=== PATIENT | female | born 1965 | race American Indian/Alaskan Native ===

== ENCOUNTER 2018-09-30 16:04 | Observation (INO) | payer SELFPAY ==
[2018-09-30] MEDS ORDERED: ASPIRIN PO ONE (16:44)
--- NOTE | 2018-09-30 16:46 | Emergency Department Report ---
Chief Complaint: Chest Pain Stated Complaint: CHEST/BODY PAIN Time Seen by Provider: 09/30/18 16:41 - HPI History of Present Illness: This is a 53 y.o. female that presents to ER with chest pain x 3 weeks. Currently taking NSAIDs with no improvement of symptoms. Patient arrived from [facility] 09/01/18 to visit relatives. - Exam Vital Signs: Vital Signs 09/30/18 16:41 Temperature 98.3 F Pulse Rate 86 Respiratory 16 Rate Blood Pressure 131/88 O2 Sat by Pulse 98 Oximetry MSE screening note: Focused history and physical exam performed. Due to findings the following was ordered: Labs, ekg, and CXR ACC for further evaluation. ED Disposition for MSE Condition: Stable
[2018-09-30 17:03] LABS: Hematocrit 38.6 % (30.3-42.9); Hemoglobin 13.4 gm/dl (10.1-14.3); Mean Corpuscular HGB Conc 35 % (30-34); Mean Corpuscular Volume 94 fl (79-97); Platelet Count 207 K/mm3 (140-440); Red Blood Count 4.09 M/mm3 (3.65-5.03); Red Cell Distribution Width 13.2 % (13.2-15.2)
[2018-09-30 17:16] LABS: BUN/Creatinine Ratio 21; Blood Urea Nitrogen 17 mg/dL (7-17); Calcium 9.3 mg/dL (8.4-10.2); Hemolysis Index 41
--- NOTE | 2018-09-30 18:04 | XRay Report ---
PROCEDURE: XR CHEST ROUTINE 2V TECHNIQUE: PA and lateral views of the chest HISTORY: Chest Pain COMPARISONS: None FINDINGS: There is no evidence of infiltrate, pneumothorax or pleural fluid collection. The cardiomediastinal silhouette is normal in appearance. The bony structures are unremarkable. IMPRESSION: 1. No evidence of an acute pulmonary process. This document is electronically signed by Dedra Hammond MD., September 30 2018 06:02:05 PM ET
--- NOTE | 2018-09-30 18:33 | Emergency Department Report ---
ED Chest Pain HPI - General Chief Complaint: Chest Pain Stated Complaint: CHEST/BODY PAIN Time Seen by Provider: 09/30/18 16:41 Source: patient Mode of arrival: Ambulatory Limitations: No Limitations - History of Present Illness Initial Comments: 53-year-old Samoan female presents to the emergency department with a complaint of a 3 week history of midsternal nonradiating chest pain and joint pains. She denies any shortness of breath but does say that the pain worsens with breathing. She has no past medical history. She is not a smoker and denie s any illicit drug use. She has tried some indomethacin, ibuprofen and aspirin, but not together, for her symptoms without much relief. Her son says that she has been going through a lot of stress with this move from [facility]. Severity scale (0 -10): 0 - Related Data Allergies Allergy/AdvReac Type Severity Reaction Status Date / Time No Known Allergies Allergy Unverified 09/30/18 16:08 Heart Score - HEART Score History: Slightly suspicious EKG: Non-specific Age: 45-65 Risk factors: No known risk factors Troponin: < normal limit HEART Score: 2 - Critical Actions Critical Actions: 0-3 pts:0.9-1.7%risk of adverse cardiac event.Candidate for discharge ED Review of Systems ROS: Stated complaint: CHEST/BODY PAIN Other details as noted in HPI Comment: All other systems reviewed and negative Constitutional: denies: chills, fever Eyes: denies: eye pain, vision change ENT: denies: ear pain, throat pain Respiratory: denies: cough, shortness of breath Cardiovascular: chest pain. denies: palpitations Gastrointestinal: denies: abdominal pain, vomiting Genitourinary: denies: urgency, dysuria Musculoskeletal: arthralgia. denies: joint swelling Skin: denies: rash, lesions Neurological: denies: headache, weakness ED Past Medical Hx - Past Medical History Previous Medical History?: No - Surgical History Past Surgical History?: Yes Additional Surgical History: eye surgery - Social History Smoking Status: Never Smoker ED Physical Exam - General Limitations: No Limitations - Other Other exam information: GENERAL: The patient is well-developed well-nourished. HEENT: Normocephalic. Atraumatic. Patient has moist mucous membranes. EYES: Extraocular motions are intact. Pupils are equal and reactive to light bilaterally. NECK: Supple. Trachea is midline. CHEST/LUNGS: Clear to auscultation. There is no respiratory distress noted. Chest pain is not reproducible to palpation of the chest wall. HEART/CARDIOVASCULAR: Regular. There is no tachycardia. There is no obvious m urmur. ABDOMEN: Abdomen is soft, nontender. Patient has normal bowel sounds. There is no abdominal distention. SKIN: Skin is warm and dry. NEURO: The patient is awake, alert, and oriented. The patient is cooperative. The patient has no focal neurologic deficits. The patient has normal speech. MUSCULOSKELETAL: There is no tenderness or deformity. There is no evidence of acute injury. ED Course Vital Signs 09/30/18 09/30/18 09/30/18 16:41 18:05 18:06 Temperature 98.3 F 98.6 F Pulse Rate 86 77 Respiratory 16 23 23 Rate Blood Pressure 131/88 Blood Pressure 133/89 [Right] O2 Sat by Pulse 98 97 97 Oximetry ALLEN score - Allen Score Age > 65: (0) No Aspirin use within the Past 7 Days: (1) Yes 3 or more CAD Risk Factors: (0) No 2 or more Angina events in past 24 hrs: (1) Yes Known CAD with more than 50% Stenosis: (0) No Elevated Cardiac Markers: (0) No ST Deviation Greater than 0.5mm: (0) No ALLEN Score: 2 ED Medical Decision Making - Lab Data Result diagrams: 09/30/18 16:50 09/30/18 16:50 - EKG Data -: EKG Interpreted by Oh EKG shows normal: sinus rhythm, axis (left axis deviation), intervals, QRS complexes (LVH), ST-T waves Rate: normal - EKG Data When compared to previous EKG there are: previous EKG unavailable Interpretation: LVH - Radiology Data Radiology results: image reviewed interpreted by me: Chest x-ray does not show any pneumothorax, pleural effusion, pneumonia or obvious focal consolidation. - Medical Decision Making Patient presents to the emergency department with a history of intermittent midsternal chest pain that worsens with respirations, as well as some joint pains. EKG shows LVH but otherwise no ST elevation CT or dysrhythmia. So far the patient has a negative troponin and negative d-dimer. She has a heart score and a ALLEN score of 2. She has never had a stress test. The pain is not reproducible to palpation of the chest wall. At first, the patient and her family were considering signing out AGAINST MEDICAL ADVICE, but the patient changed her mind and will be admitted for further cardiac workup for chest pain. The patient was accepted for admission by the hospitalist, Dr. Carias. - Differential Diagnosis PE, CT, Costochondritis, GERD Critical Care Time: No Critical care attestation.: If time is entered above; I have spent that time in minutes in the direct care of this critically ill patient, excluding procedure time. ED Disposition Clinical Impression: Chest pain Qualifiers: Chest pain type: unspecified Qualified Code(s): R07.9 - Chest pain, unspecified Joint pain Qualifiers: Joint pain location: unspecified Qualified Code(s): M25.50 - Pain in unspecified joint Disposition: -09 OP ADMIT IP TO THIS HOSP Is pt being admited?: Yes Condition: Fair Instructions: Chest Pain (ED), Arthralgia (ED) Additional Instructions: Please return to the emergency department if you change your mind about further evaluation and admission, if any worsening of your symptoms or acute distress. I am giving you referrals for primary care and cardiologists. Time of Disposition: 18:35
[2018-09-30 18:36] LABS: RBC Morphology Normal; Total Cells Counted 100
[2018-09-30] MEDS ORDERED: MORPHINE IV PRN (22:20)
[2018-09-30] MEDS ORDERED: NORCO 5/325 PO PRN (22:20)
[2018-09-30] MEDS ORDERED: SODIUM CHLORIDE FLUSH SYRINGE 10 ML IV PRN (22:20)
[2018-09-30] MEDS ORDERED: AMBIEN PO PRN (22:20)
[2018-09-30] MEDS ORDERED: TYLENOL PO PRN (22:20)
[2018-09-30] MEDS ORDERED: ZOFRAN IV PRN (22:20)
--- NOTE | 2018-09-30 22:59 | History and Physical Report ---
History of Present Illness Date of examination: 09/30/18 Chief complaint: Chest pain History of present illness: Patient is a 53 year old female who presented to the ED on account of 3 weeks history of worsening midsternal chest pain. She described it as sharp in character, radiating to the back and rated 10 over 10. Pain waxes and wanes. Pain is worse with deep breaths but no known relieving factors. She has associated subjective fever without chills, headaches, lightheadedness and generalized body aches. She denies shortness of breath, palpitation, diaphoresis, cough, sore throat, runny nose or congestion, leg swelling, orthopnea or PND. No nausea, vomiting, syncope or loss of consciousness. No abdominal pain, constipation, diarrhea, dysuria or frequency. No prior history of stress test. Past History Past Medical History: other (right eye problem) Past Surgical History: Other (RT eye surgery) Social history: no significant social history (patient denies tobacco, alcohol or illicit drug use) Family history: no significant family history (reviewed and noncontributory) Medications and Allergies Allergies Allergy/AdvReac Type Severity Reaction Status Date / Time No Known Allergies Allergy Verified 09/30/18 22:27 Active Meds: Active Medications Acetaminophen (Tylenol) 650 mg PO Q4H PRN PRN Reason: Pain MILD(1-3)/Fever >100.5/MANE Acetaminophen/Hydrocodone Bitart ([place] 5/325) 1 each PO Q4H PRN PRN Reason: Pain, Moderate (4-6) Docusate Sodium (Colace) 100 mg PO BID RM Famotidine (Pepcid) 20 mg PO BID RM Morphine Sulfate (Morphine) 2 mg IV Q2H PRN PRN Reason: Pain, Moderate (4-6) Ondansetron HCl (Zofran) 4 mg IV Q8H PRN PRN Reason: Nausea And Vomiting Sodium Chloride (Sodium Chloride Flush Syringe 10 Ml) 10 ml IV BID RM Sodium Chloride (Sodium Chloride Flush Syringe 10 Ml) 10 ml IV PRN PRN PRN Reason: LINE FLUSH Zolpidem Tartrate (Ambien) 5 mg PO QHS PRN PRN Reason: Insomnia Review of Systems All systems: negative (except as documented in the HPI, all other systems were reviewed and negative) Exam - Constitutional Vitals: Temp Pulse Resp BP Pulse Ox 98.6 F 77 23 133/89 97 09/30/18 18:05 09/30/18 18:05 09/30/18 18:06 09/30/18 18:05 09/30/18 18:06 General appearance: Present: no acute distress, obese - EENT Eyes: Present: PERRL, EOM intact ENT: hearing intact, clear oral mucosa - Neck Neck: Present: supple, normal ROM - Respiratory Respiratory effort: normal Respiratory: bilateral: CTA - Cardiovascular Rhythm: regular Heart Sounds: Present: S1 & S2. Absent: rub, click - Extremities Extremities: No edema Peripheral Pulses: within normal limits - Abdominal General gastrointestinal: Present: soft, non-tender, non-distended, normal bowel sounds Female genitourinary: Present: deferred - Integumentary Integumentary: Present: clear, warm, dry - Musculoskeletal Musculoskeletal: strength equal bilaterally, other (generalized tenderness) - Psychiatric Psychiatric: appropriate mood/affect, intact judgment & insight - Neurologic Neurologic: CNII-XII intact, moves all extremities Results - Labs CBC & Chem 7: 09/30/18 16:50 09/30/18 16:50 Labs: Laboratory Last Values WBC 4.4 K/mm3 (4.5-11.0) L 09/30/18 16:50 RBC 4.09 M/mm3 (3.65-5.03) 09/30/18 16:50 Hgb 13.4 gm/dl (10.1-14.3) 09/30/18 16:50 Hct 38.6 % (30.3-42.9) 09/30/18 16:50 MCV 94 fl (79-97) 09/30/18 16:50 MCH 33 pg (28-32) H 09/30/18 16:50 MCHC 35 % (30-34) H 09/30/18 16:50 RDW 13.2 % (13.2-15.2) 09/30/18 16:50 Plt Count 207 K/mm3 (140-440) 09/30/18 16:50 Add Manual Diff Complete 09/30/18 16:50 Total Counted 100 09/30/18 16:50 Seg Neutrophils % [employer] 09/30/18 16:50 Seg Neuts % (Manual) 37.0 % (40.0-70.0) L 09/30/18 16:50 Band Neutrophils % 0 % 09/30/18 16:50 Lymphocytes % (Manual) 51.0 % (13.4-35.0) H 09/30/18 16:50 Reactive Lymphs % (Man) 0 % 09/30/18 16:50 Monocytes % (Manual) 9.0 % (0.0-7.3) H 09/30/18 16:50 Eosinophils % (Manual) 2.0 % (0.0-4.3) 09/30/18 16:50 Basophils % (Manual) 1.0 % (0.0-1.8) 09/30/18 16:50 Metamyelocytes % 0 % 09/30/18 16:50 Myelocytes % 0 % 09/30/18 16:50 Promyelocytes % 0 % 09/30/18 16:50 Blast Cells % 0 % 09/30/18 16:50 Nucleated RBC % Not Reportable 09/30/18 16:50 Seg Neutrophils # Man 1.6 K/mm3 (1.8-7.7) L 09/30/18 16:50 Band Neutrophils # 0.0 K/mm3 09/30/18 16:50 Lymphocytes # (Manual) 2.2 K/mm3 (1.2-5.4) 09/30/18 16:50 Abs React Lymphs (Man) 0.0 K/mm3 09/30/18 16:50 Monocytes # (Manual) 0.4 K/mm3 (0.0-0.8) 09/30/18 16:50 Eosinophils # (Manual) 0.1 K/mm3 (0.0-0.4) 09/30/18 16:50 Basophils # (Manual) 0.0 K/mm3 (0.0-0.1) 09/30/18 16:50 Metamyelocytes # 0.0 K/mm3 09/30/18 16:50 Myelocytes # 0.0 K/mm3 09/30/18 16:50 Promyelocytes # 0.0 K/mm3 09/30/18 16:50 Blast Cells # 0.0 K/mm3 09/30/18 16:50 WBC Morphology Not Reportable 09/30/18 16:50 Hypersegmented Neuts Not Reportable 09/30/18 16:50 Hyposegmented Neuts Not Reportable 09/30/18 16:50 Hypogranular Neuts Not Reportable 09/30/18 16:50 Smudge Cells Not Reportable 09/30/18 16:50 Toxic Granulation Not Reportable 09/30/18 16:50 Toxic Vacuolation Not Reportable 09/30/18 16:50 Dohle Bodies Not Reportable 09/30/18 16:50 Pelger-Huet Anomaly Not Reportable 09/30/18 16:50 Honorio Rods Not Reportable 09/30/18 16:50 Platelet Estimate Appears normal 09/30/18 16:50 Clumped Platelets Not Reportable 09/30/18 16:50 Plt Clumps, EDTA Not Reportable 09/30/18 16:50 Large Platelets Not Reportable 09/30/18 16:50 Giant Platelets Not Reportable 09/30/18 16:50 Platelet Satelliting Not Reportable 09/30/18 16:50 Plt Morphology Comment Not Reportable 09/30/18 16:50 RBC Morphology Normal 09/30/18 16:50 Dimorphic RBCs Not Reportable 09/30/18 16:50 Polychromasia Not Reportable 09/30/18 16:50 Hypochromasia Not Reportable 09/30/18 16:50 Poikilocytosis Not Reportable 09/30/18 16:50 Anisocytosis Not Reportable 09/30/18 16:50 Microcytosis Not Reportable 09/30/18 16:50 Macrocytosis Not Reportable 09/30/18 16:50 Spherocytes Not Reportable 09/30/18 16:50 Pappenheimer Bodies Not Reportable 09/30/18 16:50 Sickle Cells Not Reportable 09/30/18 16:50 Target Cells Not Reportable 09/30/18 16:50 Tear Drop Cells Not Reportable 09/30/18 16:50 Ovalocytes Not Reportable 09/30/18 16:50 Helmet Cells Not Reportable 09/30/18 16:50 Ballesteros-Glennallen Bodies Not Reportable 09/30/18 16:50 [place] Rings Not Reportable 09/30/18 16:50 Vira Cells Not Reportable 09/30/18 16:50 Bite Cells Not Reportable 09/30/18 16:50 Crenated Cell Not Reportable 09/30/18 16:50 Elliptocytes Not Reportable 09/30/18 16:50 Acanthocytes (Spur) Not Reportable 09/30/18 16:50 Rouleaux Not Reportable 09/30/18 16:50 Hemoglobin C Crystals Not Reportable 09/30/18 16:50 Schistocytes Not Reportable 09/30/18 16:50 Malaria parasites Not Reportable 09/30/18 16:50 Jd Bodies Not Reportable 09/30/18 16:50 Hem Pathologist Commnt No 09/30/18 16:50 D-Dimer 217.25 ng/mlDDU (0-234) 09/30/18 16:55 Sodium 138 mmol/L (137-145) 09/30/18 16:50 Potassium 4.4 mmol/L (3.6-5.0) 09/30/18 16:50 Chloride 101.7 mmol/L (98-107) 09/30/18 16:50 Carbon Dioxide 26 mmol/L (22-30) 09/30/18 16:50 Anion Gap 15 mmol/L 09/30/18 16:50 BUN 17 mg/dL (7-17) 09/30/18 16:50 Creatinine 0.8 mg/dL (0.7-1.2) 09/30/18 16:50 Estimated GFR > 60 ml/min 09/30/18 16:50 BUN/Creatinine Ratio 21 % 09/30/18 16:50 Glucose 106 mg/dL (65-100) H 09/30/18 16:50 Calcium 9.3 mg/dL (8.4-10.2) 09/30/18 16:50 Troponin T < 0.010 ng/mL (0.00-0.029) 09/30/18 20:00 Assessment and Plan Assessment and plan: Chest pain, rule out ACS -On chest pain pathway -D-dimer not suggestive of DVT or PE -Further investigative testing with stress test in a.m. Arthralgia -Probably secondary to arthritis -On when necessary narcotics Obesity with BMI of 35 -Lifestyle modification recommended DVT prophylaxis with SCD Disposition: For discharge if stress test is negative TIME SPENT: 32 minutes
[2018-10-01] MEDS ORDERED: PEPCID ONE (00:42)
[2018-10-01] MEDS: PEPCID PO SCH ×2 (01:00→10:41)
[2018-10-01] MEDS ORDERED: LEXISCAN IV ONE ×2 (07:58→09:00)
[2018-10-01] MEDS ORDERED: COLACE PO SCH (10:00)
[2018-10-01] MEDS ORDERED: SODIUM CHLORIDE FLUSH SYRINGE 10 ML IV SCH (10:00)
--- NOTE | 2018-10-01 11:16 | Discharge Summary ---
Providers - Providers Date of Admission: 09/30/18 22:20 Attending physician: OLIMPIA PEDERSON MD [facility] Reason for admission: Chest pain Condition: Fair Pertinent studies: cardiac stress test negative for ischemia Hospital course: Patient is a 53 year old female who presented to the ED on account of 3 weeks history of worsening midsternal chest pain. She described it as sharp in character, radiating to the back and rated 10 over 10. Pain waxes and wanes. Pain is worse with deep breaths but no known relieving factors. She has associated subjective fever without chills, headaches, lightheadedness and generalized body aches. She denies shortness of breath, palpitation, diaphoresis, cough, sore throat, runny nose or congestion, leg swelling, orthopnea or PND. No nausea, vomiting, syncope or loss of consciousness. No abdominal pain, constipation, diarrhea, dysuria or frequency. No prior history of stress test. Patient was admitted to the floor and serial troponins were negative, EKG no STEMI. Stress test was done and was normal. Patient's chest pain subsided and discharged home in a stable condition. Appropriate medication scripts were given at the time of discharge. Disposition: DC- TO HOME OR SELFCARE Time spent for discharge: 32 minutes - Discharge Diagnoses (1) Chest pain Status: Acute Qualifiers: Chest pain type: unspecified Qualified Code(s): R07.9 - Chest pain, unspecified (2) Joint pain Status: Acute Qualifiers: Joint pain location: unspecified Qualified Code(s): M25.50 - Pain in unspecified joint (3) Obesity (BMI 35.0-39.9 without comorbidity) Status: Acute Core Measure Documentation - Palliative Care Palliative Care/ Comfort Measures: Not Applicable - Core Measures Any of the following diagnoses?: none Exam - Physical Exam Narrative exam: Not in cardiopulmonary distress. The patient is obese Vital signs as documented. Head exam is unremarkable. No scleral icterus . Neck is without jugular venous distension, thyromegaly, or carotid bruits. Lungs are clear to auscultation. Cardiac exam reveals regular rate and Rhythm. First and second heart sounds normal. No murmurs, rubs or gallops. Abdominal exam reveals normal bowel sounds, no masses, no organomegaly and no aortic enlargement. Extremities are nonedematous and both femoral and pedal pulses are normal. OIL HEATERMAN: Alert and oriented 3. No focal weakness. - Constitutional Vitals: Temp Pulse Resp BP Pulse Ox 98.2 F 79 20 148/94 97 10/01/18 03:46 10/01/18 03:46 10/01/18 10:44 10/01/18 09:28 10/01/18 03:46 Plan Activity: no restrictions Weight Bearing Status: Full Weight Bearing Diet: regular Follow up with: APRIL MOYASURPRISE MD AMY [Primary Care Provider] - 7 Days Prescriptions: Famotidine 20 mg PO BID #20 tablet Ibuprofen 400 mg PO TID PRN #20 tablet PRN Reason: Pain , Severe (7-10)
[2018-10-01 13:20] VITALS: BP 143/91
== END 2018-10-01 14:52 | disposition home or self-care (01) ==
LOC: ED 16:04 → 4A 22:20
PROVIDERS: ADMIT Internal Medicine; ATTEND Internal Medicine
DX: R07.89 Other chest pain (principal); M25.50 Pain in unspecified joint; E66.9 Obesity, unspecified; Z68.35 Body mass index [BMI] 35.0-35.9, adult; Z79.899 Other long term (current) drug therapy
CPT/HCPCS: 36415; 71046; 78452; 80048; 83735; 84484; 85007; 85025; 85379; 93005; 93010; 93017; 99284; A9502; G0378; J2785

== ENCOUNTER 2020-02-10 13:07 | Emergency (ER) | payer SELFPAY ==
[2020-02-10 13:20] VITALS: BP 109/78
[2020-02-10] MEDS ORDERED: HYDROGEN PEROXIDE 118 ML SOLUTION ONE (15:34)
--- NOTE | 2020-02-10 15:58 | Emergency Department Report ---
- General Chief complaint: Extremity Problem,Nontraumatic Stated complaint: INFECTED FINGER Time Seen by Provider: 02/10/20 15:53 Source: patient Mode of arrival: Ambulatory Limitations: No Limitations - History of Present Illness Initial comments: 54-year-old -[place] female resents emerged department complaining of an infected finger on the left third digit of an unknown etiology with some mild throbbing pain for the last 2 to 3 days. No fever, chills, sweats no numbness or tingling Tetanus Up to Date: no Location: L hand Severity: mild Consistency: constant Improves with: none Worsens with: none Context: none Associated symptoms: denies other symptoms Treatments Prior to Arrival: none - Related Data Previous Rx's Medication Instructions Recorded Last Taken Type Famotidine 20 mg PO BID #20 tablet 10/01/18 Unknown Rx Ibuprofen [Ibuprofen 400] 400 mg PO TID PRN #20 tablet 10/01/18 Unknown Rx cephALEXin [Keflex] 500 mg PO Q6HR #28 capsule 02/10/20 Unknown Rx traMADoL [Ultram] 50 mg PO Q6HR PRN #14 tablet 02/10/20 Unknown Rx Allergies Allergy/AdvReac Type Severity Reaction Status Date / Time No Known Allergies Allergy Verified 09/30/18 22:27 Abscess Boil HPI - HPI Chief Complaint: Extremity Problem,Nontraumatic Stated Complaint: INFECTED FINGER Time Seen by Provider: 02/10/20 15:53 Home Medications: Previous Rx's Medication Instructions Recorded Last Taken Type Famotidine 20 mg PO BID #20 tablet 10/01/18 Unknown Rx Ibuprofen [Ibuprofen 400] 400 mg PO TID PRN #20 tablet 10/01/18 Unknown Rx cephALEXin [Keflex] 500 mg PO Q6HR #28 capsule 02/10/20 Unknown Rx traMADoL [Ultram] 50 mg PO Q6HR PRN #14 tablet 02/10/20 Unknown Rx Allergies/Adverse Reactions: Allergies Allergy/AdvReac Type Severity Reaction Status Date / Time No Known Allergies Allergy Verified 09/30/18 22:27 ED Review of Systems ROS: Stated complaint: INFECTED FINGER Other details as noted in HPI Comment: All other systems reviewed and negative ED Past Medical Hx - Past Medical History Previous Medical History?: No - Surgical History Past Surgical History?: Yes Additional Surgical History: eye surgery - Social History Smoking Status: Never Smoker Substance Use Type: None - Medications Home Medications: Home Medications Medication Instructions Recorded Confirmed Last Taken Type Famotidine 20 mg PO BID #20 tablet 10/01/18 Unknown Rx Ibuprofen [Ibuprofen 400] 400 mg PO TID PRN #20 tablet 10/01/18 Unknown Rx cephALEXin [Keflex] 500 mg PO Q6HR #28 capsule 02/10/20 Unknown Rx traMADoL [Ultram] 50 mg PO Q6HR PRN #14 tablet 02/10/20 Unknown Rx ED Physical Exam - General Limitations: No Limitations General appearance: alert, in no apparent distress - Head Head exam: Present: atraumatic, normocephalic - Eye Eye exam: Present: normal appearance - ENT ENT exam: Present: mucous membranes moist - Neck Neck exam: Present: normal inspection - Respiratory Respiratory exam: Present: normal lung sounds bilaterally. Absent: respiratory distress - Cardiovascular Cardiovascular Exam: Present: regular rate, normal rhythm. Absent: systolic murmur, diastolic murmur, rubs, gallop - GI/Abdominal GI/Abdominal exam: Present: soft, normal bowel sounds - Extremities Exam Extremities exam: Present: normal inspection - Back Exam Back exam: Present: normal inspection - Neurological Exam Neurological exam: Present: alert, oriented X3 - Psychiatric Psychiatric exam: Present: normal affect, normal mood - Skin Skin exam: Present: warm, dry, other (Paronychia to the left third digit. Mild swelling noted in tenderness with palpation). Absent: rash ED Course Vital Signs 02/10/20 13:13 Temperature 98 F Pulse Rate 84 Respiratory 16 Rate Blood Pressure 109/78 O2 Sat by Pulse 98 Oximetry - Procedure Description Procedures done: pRE-OP DIAGNOSIS: Paronychia. POST-OP DIAGNOSIS: Same. PROCEDURE: incision and drainage of paronychia. Performing Physician/advanced practice provider: Monty Jasso_. . PROCEDURE: A timeout protocol was performed prior to initiating the procedure. The area was prepared and draped in the usual, sterile manner. A linear incision with an 11 blade was along the local skin lines was made and the purulent material expressed. The abcess was explored thoroughly and sequestered pockets were opened. Wound was irrigated with normal saline and bleeding was minimal. Packing: None. . Followup: The patient tolerated the procedure well without complications. Standard post- procedure care is explained and return precautions are given. Critical care attestation.: If time is entered above; I have spent that time in minutes in the direct care of this critically ill patient, excluding procedure time. ED Disposition Clinical Impression: Paronychia of finger of left hand Disposition: - TO HOME OR SELFCARE Is pt being admited?: No Does the pt Need Aspirin: No Condition: Stable Instructions: Paronychia (ED) Prescriptions: cephALEXin [Keflex] 500 mg PO Q6HR #28 capsule traMADoL [Ultram] 50 mg PO Q6HR PRN #14 tablet PRN Reason: Pain Referrals: PRIMARY CARE, [Primary Care Provider] - 3-5 Days [facility] [Provider Group] - 3-5 Days
== END 2020-02-10 16:47 | disposition home or self-care (01) ==
LOC: ED 13:07
DX: L03.012 Cellulitis of left finger (principal)
CPT/HCPCS: 99281